=== PATIENT | female | born 2000 | race Caucasian/White ===

== ENCOUNTER 2021-01-16 09:04 | Emergency (ER) | payer OTHER ==
[2021-01-16 10:02] LABS: HEMOGLOBIN 13.6 gm/dl (12.3-15.3); RED BLOOD COUNT 4.36 M/UL (4.00-5.10); WHITE BLOOD COUNT 6.6 K/UL (4.5-11.0)
[2021-01-16 10:59] LABS: BUN/CREATININE RATIO 14 (0-10)
[2021-01-16] MEDS ORDERED: MACROBID 100 M100 M1 PO (11:57)
[2021-01-16] MEDS ORDERED: ZOFRAN ODT 4 MG4 MG PO (11:57)
== END 2021-01-16 12:17 | disposition home or self-care (01) ==
LOC: ER1 09:04
PROVIDERS: Family Medicine
DX: S09.90XA Unspecified injury of head, initial encounter (principal); R55 Syncope and collapse; N39.0 Urinary tract infection, site not specified; W20.8XXA Other cause of strike by thrown, projected or falling object, initial encounter
CPT/HCPCS: 80053; 81001; 84703; 85025; 87077; 87086; 87186; 93005; 99284

== ENCOUNTER 2021-03-31 09:00 | Emergency (ER) | payer OTHER ==
[~2021-03-31 09:00] MED LIST: MACROBID 100 M100 M1 PO; ZOFRAN ODT 4 MG4 MG PO
[2021-03-31 11:00] LABS: HEMOGLOBIN 14.4 gm/dl (12.3-15.3); RED BLOOD COUNT 4.59 M/UL (4.00-5.10); WHITE BLOOD COUNT 9.7 K/UL (4.5-11.0)
[2021-03-31 11:22] LABS: BUN/CREATININE RATIO 12 (0-10)
[2021-03-31] MEDS ORDERED: ZOFRAN4 MG PO (13:01)
== END 2021-03-31 13:18 | disposition home or self-care (01) ==
LOC: ER1 09:00
PROVIDERS: Physician Assistant
DX: R55 Syncope and collapse (principal); R51.9 Headache, unspecified; R42 Dizziness and giddiness; R11.0 Nausea; F17.200 Nicotine dependence, unspecified, uncomplicated
CPT/HCPCS: 71045; 80053; 81001; 82550; 82553; 83874; 84484; 84703; 85025; 93005; 96374; 96375; 99284; J1885; J2405